=== PATIENT | male | born 1965 | race Caucasian/White ===

== ENCOUNTER 2017-03-20 10:57 | Emergency (ER) | payer SELFPAY ==
[2017-03-20 11:26] VITALS: BP 150/81
--- NOTE | 2017-03-20 11:42 | ER Document Report ---
ED Medical Screen (RME) - General Chief Complaint: Chest Pain Stated Complaint: CHEST PAIN/COUGHING Time Seen by Provider: 03/20/17 11:40 Notes: Patient states that he has had hemoptysis for several months. He states now he is coughing up yellow-brown sputum as well. He also now has chest pain and shortness of breath. States that he smokes marijuana daily. TRAVEL OUTSIDE OF THE [place] IN LAST 30 DAYS: No - Related Data Allergies/Adverse Reactions: No Known Allergies Allergy (Unverified 03/20/17 11:26) Past Medical History - Social History Chew tobacco use (# tins/day): No Frequency of alcohol use: None Drug Abuse: Marijuana Renal/ Medical History: Reports: Hx Kidney Stones. Denies: Hx Peritoneal Dialysis - Immunizations Hx Diphtheria, Pertussis, Tetanus Vaccination: No History of Influenza Vaccine for 02/2017 - 07/2017 Season: No Physical Exam - Vital signs Vitals: Temp Pulse Resp BP Pulse Ox 98.4 F 78 18 150/81 H 95 03/20/17 11:01 03/20/17 11:01 03/20/17 11:01 03/20/17 11:01 03/20/17 11:01 Course - Vital Signs Vital signs: Temp Pulse Resp BP Pulse Ox 98.4 F 78 18 150/81 H 95 03/20/17 11:01 03/20/17 11:01 03/20/17 11:01 03/20/17 11:01 03/20/17 11:01
[2017-03-20 11:54] LABS: ABSOLUTE BASOPHILS # (AUTO) 0.1 10^3/uL (0.0-0.2); ABSOLUTE LYMPHOCYTES (AUTO) 2.2 10^3/uL (0.5-4.7); ABSOLUTE MONOCYTES (AUTO) 0.3 10^3/uL (0.1-1.4); ABSOLUTE NEUT (AUTO) 5.3 10^3/uL (1.7-8.2); BASOPHILS % (AUTO) 0.8 % (0-2); EOSINOPHILS % (AUTO) 0.6 % (0-6); HEMATOCRIT 47.1 % (37.9-51.0); HEMOGLOBIN 16.1 g/dL (13.5-17.0); HGB HCT DIFFERENCE 1.2; LYMPHOCYTES % (AUTO) 27.3 % (13-45); MEAN CORPUSCULAR HEMOGLOBIN 30.3 pg (27.0-33.4); MEAN CORPUSCULAR HGB CONC 34.2 g/dL (32.0-36.0); MEAN CORPUSCULAR VOLUME 89 fl (80-97); MONOCYTES % (AUTO) 4.2 % (3-13); RED BLOOD COUNT 5.33 10^6/uL (4.35-5.55); RED CELL DISTRIBUTION WIDTH 14.2 % (11.5-14.0); SEGMENTED NEUTROPHILS % (AUTO) 67.1 % (42-78)
[2017-03-20 12:10] LABS: ALANINE AMINOTRANSFERASE 35 U/L (21-72); ALBUMIN 4.4 g/dL (3.5-5.0); ALKALINE PHOSPHATASE 58 U/L (38-126); ANION GAP 12 (5-19); ASPARTATE AMINO TRANSFERASE 29 U/L (17-59); BILIRUBIN,DIRECT 0.4 mg/dL (0.0-0.4); BILIRUBIN,TOTAL 1.4 mg/dL (0.2-1.3); BLOOD UREA NITROGEN 18 mg/dL (7-20); CALCIUM 9.5 mg/dL (8.4-10.2); CARBON DIOXIDE 31 mmol/L (22-30); CHLORIDE 104 mmol/L (98-107); CREATININE RESULT 1.26 mg/dL (0.52-1.25); GLUCOSE 102 mg/dL (75-110); SODIUM 146.6 mmol/L (137-145); TOTAL PROTEIN 7.2 g/dL (6.3-8.2)
[2017-03-20] MEDS ORDERED: NORMAL SALINE 1000 ML 1,000 ML IV ONE (12:32)
[2017-03-20] MEDS ORDERED: DEXAMETHASONE SOD PHOS INJ 10 MG/1 ML VIAL IM ONE (13:19)
[2017-03-20] MEDS ORDERED: IPRATROPIUM/ALBUTEROL 0.5-2.5 MG/3 ML AMPUL NEB ONE (13:19)
--- NOTE | 2017-03-20 13:19 | ER Document Report ---
ED General - General Chief Complaint: Chest Pain Stated Complaint: CHEST PAIN/COUGHING Time Seen by Provider: 03/20/17 11:40 TRAVEL OUTSIDE OF THE [place] IN LAST 30 DAYS: No - HPI Notes: Patient is a 51-year-old male with no significant past medical history who presents the ED complaining of a dry, semi-productive, cough, posttussive emesis , chest pain, and wheezing x 2 weeks. + occ nasal viola/discharge. Patient states that he is still eating and drinking without any difficulties. He still urinating normally and having normal bowel movements. Patient states that ambulation does not worsen his pain and he does not develop any dyspnea on exertion. Patient states that he does smoke cigarettes and read every day. Patient has not been using any inhalers or nebulizer treatments as he does not have any at home. He has been using some [id number] meds with minimal relief. Patient states that this time last year he had pneumonia and this feels similar. Patient states that on 2 episodes of posttussive emesis he noticed a scant amount of blood within the vomit. Patient denies any alcohol intake. Patient states that he does not take any medications daily. He denies any drug allergies. Denies any headache, fever, neck pain, sore throat, palpitations, syncope, abdominal pain, nausea/diarrhea, urinary retention, dysuria, hematuria, or rash. Patient denies any cardiac history, prolonged travel, prolonged immobilization, recent surgery, PE, DVT, or sudden cardiac at young age within the family. - Related Data Allergies/Adverse Reactions: No Known Allergies Allergy (Unverified 03/20/17 11:26) Past Medical History - Social History Smoking Status: Current Every Day Smoker Chew tobacco use (# tins/day): No Frequency of alcohol use: None Drug Abuse: Marijuana Family History: Reviewed & Not Pertinent Patient has suicidal ideation: No Patient has homicidal ideation: No Renal/ Medical History: Reports: Hx Kidney Stones. Denies: Hx Peritoneal Dialysis - Immunizations Hx Diphtheria, Pertussis, Tetanus Vaccination: No Review of Systems - Review of Systems Notes: REVIEW OF SYSTEMS: CONSTITUTIONAL : Denies fever, chills, or sweats. EENT: see hpi. no eye/ear complaints. CARDIOVASCULAR: see hpi. Denies palpitations or racing or irregular heart beat. Denies ankle edema. RESPIRATORY: see hpi GASTROINTESTINAL: Denies abdominal pain or distention. Denies nausea or diarrhea. Denies blood in vomitus, stools, or per rectum. Denies black, tarry stools. Denies constipation. GENITOURINARY: Denies difficulty urinating, painful urination, burning, frequency, blood in urine, or discharge. MUSCULOSKELETAL: Denies back or neck pain or stiffness. Denies joint pain or swelling. SKIN: Denies rash, lesions or sores. NEUROLOGICAL: Denies confusion or altered mental status. Denies passing out or loss of consciousness. Denies dizziness or lightheadedness. Denies headache. Denies weakness or paralysis or loss of use of either side. Denies problems with gait or speech. Denies sensory loss, numbness, or tingling. ALL OTHER SYSTEMS REVIEWED AND NEGATIVE. Dictation was performed using [employer] voice recognition software Physical Exam - Vital signs Vitals: Temp Pulse Resp BP Pulse Ox 98.4 F 78 18 150/81 H 95 03/20/17 11:01 03/20/17 11:01 03/20/17 11:01 03/20/17 11:01 03/20/17 11:01 Notes: PHYSICAL EXAMINATION: GENERAL: Well-appearing, well-nourished and in no acute distress. A&Ox4 HEAD: Atraumatic, normocephalic. EYES: Pupils equal round and reactive to light, extraocular movements intact, sclera anicteric, conjunctiva are normal. ENT: EAC clear b/l. TM's intact b/l without erythema, fluid, or perforation. Nares patent and without discharge. oropharynx clear without exudates. No tonsilar hypertrophy or erythema. Moist mucous membranes. No sinus tenderness. NECK: Normal range of motion, supple without lymphadenopathy. No rigidity/ meningismus. Chest: no flail chest, + equal rise/fall. + chest wall tenderness to the b/l sternum near #2-3 (tenderness elicited corresponds to pain described). LUNGS: Wheezes b/l HEART: Regular rate and rhythm without murmurs, rubs, gallops. ABDOMEN: Soft, nontender, nondistended abdomen. No guarding, no rebound. No masses appreciated. Normal bowel sounds present. No CVA tenderness bilaterally. Musculoskeletal: FROM to passive/active. Strength 5+/5. Extremities: No cyanosis, clubbing, or edema b/l. Peripheral pulses 2+. Capillary refill less than 3 seconds. NEUROLOGICAL: Cranial nerves grossly intact. Normal speech, normal gait. Normal sensory, motor exams PSYCH: Normal mood, normal affect. SKIN: Warm, Dry, normal turgor, no rashes or lesions noted. Course - Re-evaluation Re-evalutation: 03/20/17 15:17 Patient is an afebrile, well-hydrated, 51-year-old male who presents to the ED with suspected acute bronchitis with bronchospasm is an H&P today. Vitals are stable. PE is otherwise unremarkable. Chest x-ray was unremarkable for any acute pathology. Breathing treatment given today along with decadron. Pt noted improvement in cough and wheezing. Lung sounds did improve, but some wheezing remains b/l. CBC unremarkable. CMP showed mild CKD, but I suspect that he is somewhat dry so fluids were given. EKG was also unremarkable. The first cardiac enzymes were unremarkable with a second pending. Patient has chest wall tenderness that is associated and correlates with the pain that he describes. Patient has a heart score of 1 currently. Wells score and PERC score of 0. I have a low suspicion for any ACS, PE, pneumothorax, pericarditis , dissection, sepsis, resp compromise, severe dehydration, or other systemic emergent condition at this time. Patient states that he does not want to wait any longer for the second cardiac enzymes to come through. I reviewed with the patient the risks and benefits of his decision to want to leave AMA including having a heart attack, respiratory failure, and dying. Patient states that everybody dies and he is not afraid. Patient states that he is things to do tonight wants to leave. We did already draw the second cardiac enzyme and I will monitor for any acute rise in his troponin. I will still send him home with a prescription for a Z-Sekou, inhaler. Decadron was given IV today. Conservative measures for symptoms otherwise. Recheck with your PCM later this week. Return to the ED with any worsening/ concerning symptoms otherwise as reviewed in discharge. Consider consult with herbologist for further evaluation and management and possible outpatient testing including stress test. Patient is in agreement. - Vital Signs Vital signs: Temp Pulse Resp BP Pulse Ox 98.4 F 78 18 150/81 H 98 03/20/17 11:01 03/20/17 11:01 03/20/17 11:01 03/20/17 11:01 03/20/17 12:00 - Laboratory Result Diagrams: 03/20/17 11:46 03/20/17 11:46 Laboratory results interpreted by me: 03/20/17 03/20/17 03/20/17 11:46 11:46 11:46 RDW 14.2 H Sodium 146.6 H Carbon Dioxide 31 H Creatinine 1.26 H Total Bilirubin 1.4 H Creatine Kinase 416 H Discharge - Discharge Clinical Impression: Acute bronchitis with bronchospasm, Chest wall pain Condition: Stable Disposition: AGAINST MEDICAL ADVICE Instructions: Chest Wall Pain ([facility]), Chest Pain of Unclear Cause ([facility]), Bronchitis With Bronchospasm (Wheezing) ([facility]), Bronchodilators ([facility]), Steroid Medication Injection Additional Instructions: Maintain adequate fluid intake Take meds as directed tylenol/ibuprofen as needed ice may help use inhaler as directed over the counter cold medication as needed for symptoms Humidified air may help F/u: with your PCM in 3-5 days for a recheck Consider consult with cardiology for further evaluation and management and possible outpatient testing including stress test. Understand that you are leaving AMA and that your decision could result in worsening illness and/or . Return to the ED with any fever, worsening pain, chest pain, palpitations, syncope, worsening AMARAL, neck pain/stiffness, shortness of breath, wheezing, drooling, trouble swallowing/breathing, abdominal pain, n/v/d, rash, or worsening/concerning symptoms otherwise. Prescriptions: Albuterol Sulfate [Proair HFA Inhalation Aerosol 8.5 gm MDI] 2 puff IH Q4H PRN # 1 mdi PRN Reason: Azithromycin [Zithromax 250 mg Tablet] 250 mg PO ASDIR PRN #6 tablet PRN Reason: Forms: Elevated Blood Pressure Referrals: DEMETRICE ROBERTS MD [ACTIVE STAFF] - Follow up as needed [facility] [Provider Group] - Follow up as needed [facility] [Provider Group] - Follow up as needed
[2017-03-20] MEDS ORDERED: DEXAMETHASONE SOD PHOS INJ 10 MG/1 ML VIAL IV ONE (13:39)
[2017-03-20] MEDS ORDERED: LIDOCAINE 5% (700 MG) TRANSDERMAL ADH..PATCH TP ONE (13:40)
--- NOTE | 2017-03-20 13:45 | RADIOLOGY REPORT (SQ) ---
EXAM DESCRIPTION: CHEST PA/LAT COMPLETED DATE/TIME: 03/20/2017 1:31 pm REASON FOR STUDY: hemoptysis COMPARISON: None. EXAM PARAMETERS: NUMBER OF VIEWS: two views TECHNIQUE: Digital Frontal and Lateral radiographic views of the chest acquired. RADIATION DOSE: NA LIMITATIONS: none FINDINGS: LUNGS AND PLEURA: No opacities, masses or pneumothorax. No pleural effusion. MEDIASTINUM AND HILAR STRUCTURES: No masses or contour abnormalities. HEART AND VASCULAR STRUCTURES: Heart normal size. No evidence for failure. BONES: No acute findings. HARDWARE: None in the chest. OTHER: No other significant finding. IMPRESSION: NO SIGNIFICANT RADIOGRAPHIC FINDING IN THE CHEST. TECHNICAL DOCUMENTATION: JOB ID: [id number] [employer]- All Rights Reserved
[2017-03-20 15:14] LABS: TROPONIN I < 0.012 ng/mL
--- NOTE | 2017-03-20 15:24 | EKG REPORT ---
SEVERITY:- ABNORMAL ECG - SINUS RHYTHM PROBABLE LEFT VENTRICULAR HYPERTROPHY : Confirmed by: Sherif Deras 20-Mar-2017 15:24:20
== END 2017-03-20 15:30 | disposition left against medical advice (07) ==
LOC: ER 10:57
DX: J20.9 Acute bronchitis, unspecified (principal); R07.89 Other chest pain; F17.210 Nicotine dependence, cigarettes, uncomplicated
CPT/HCPCS: 93005; 99284; 36415; 82553; 82550; 85025; 80053; 84484; 71020; 93010; J7030; J1100; J7620